=== PATIENT | female | born 1995 | race African-American/Black ===

== ENCOUNTER 2021-09-26 22:21 | Emergency (ER) | payer OTHER ==
[~2021-09-26] VITALS: Ht 160 cm; Wt 68.2 kg
[2021-09-26 22:23] VITALS: BP 142/90
[2021-09-26] MEDS ORDERED: ALBUTEROL SULFATE 2.5 MG/0.5 ML NEB SOLUTION NEB ONE (23:30)
[2021-09-26] MEDS ORDERED: IPRATROPIUM BROMIDE 0.5 MG/2.5 ML NEB SOLUTION NEB ONE (23:30)
== END 2021-09-27 | disposition home or self-care (01) ==
LOC: EMS 22:26
DX: J45.901 Unspecified asthma with (acute) exacerbation (principal)
CPT/HCPCS: 94640; 99283

== ENCOUNTER 2024-07-22 20:07 | Emergency (ER) | payer OTHER ==
[~2024-07-22] VITALS: Ht 160 cm; Wt 76.8 kg
[2024-07-22 20:25] VITALS: TEMP 98.2
[2024-07-22] MEDS: IPRATROPIUM BROMIDE 0.5 MG/2.5 ML NEB SOLUTION NEB ONE (22:09)
[2024-07-22 22:10] VITALS: PULSE 102; RESP 20; O2SAT 98
[2024-07-22] MEDS: ALBUTEROL SULFATE 2.5 MG/0.5 ML NEB SOLUTION NEB ONE (22:10)
[2024-07-22 22:20] VITALS: BP 119/76; O2SAT 98
[2024-07-22 22:25] VITALS: PULSE 100; RESP 16; O2SAT 100
[2024-07-22 22:41] LABS: COVID AG,FIA SOURCE NASAL SWAB
[2024-07-22] MEDS ORDERED: PRED-554 PO (22:45)
[2024-07-22] MEDS ORDERED: ALBU18HF12 IH (22:46)
[2024-07-22] MEDS ORDERED: ALBU0.8311 NEB (22:46)
[2024-07-22 23:02] LABS: SARS-COV2 (COVID) ANTIGEN,FIA Negative (Negative)
[2024-07-22] MEDS: PredniSONE 20 MG TABLET PO ONE (23:02)
[2024-07-22 23:03] LABS: INFLUENZA TYPE A NEGATIVE FOR TYPE A (NEGATIVE); INFLUENZA TYPE B NEGATIVE FOR TYPE B (NEGATIVE)
== END 2024-07-22 23:17 | disposition home or self-care (01) ==
LOC: EMS 20:07
DX: J45.901 Unspecified asthma with (acute) exacerbation (principal); Z20.822 Contact with and (suspected) exposure to COVID-19
CPT/HCPCS: 99283; 87426; 87804; 94640; J7512